=== PATIENT | female | born 1990 | race Caucasian/White ===

== ENCOUNTER → 2016-11-29 | Outpatient (CLI) | payer BC ==
[~2016-11-29] MED LIST: DOCO1CAP10; FERR325T5; PRENTAB26 PO
[2016-11-29 16:07] LABS: URINE APPEARANCE CLEAR (CLEAR); URINE BILIRUBIN NEG (NEG); URINE COLOR YELLOW; URINE NITRITE NEG (NEG); URINE SPECIFIC GRAVITY 1.015 (1.000-1.030); UROBILINOGEN NEG (NEG)
[2016-11-29 16:12] LABS: MANUAL MICROSCOPIC REQUIRED? NO; REVIEW REQ? NO
== END | disposition home or self-care (01) ==
LOC: C.LABSPEC 15:57
PROVIDERS: ATTEND Obstetrics & Gynecology
DX: Z34.00 Encounter for supervision of normal first pregnancy, unspecified trimester (principal)

== ENCOUNTER → 2016-12-02 | Outpatient (CLI) | payer BC ==
[2016-12-02 17:41] LABS: BASO % 0.1 %; BASO ABS # 0.01 K/uL (0-0.2); COMPLETE YES; EOS % 0.9 %; HEMATOCRIT 32.2 % (37-47); IG% 0.3 %; LYMPH % 18.6 %; LYMPH ABS # 1.82 K/uL (1.2-3.4); MEAN CELL VOLUME 89.9 fL (80-100); MEAN CORPUSCULAR HEMOGLOBIN 32.1 pg (25-34); MEAN CORPUSCULAR HGB CONC 35.7 g/dl (32-36); MEAN PLATELET VOLUME 9.6 fL (7.4-10.4); MONO % 5.9 %; NEUT % 74.2 %; PLATELET COUNT 270 K/uL (130-400); RED BLOOD COUNT 3.58 M/uL (4.2-5.4); WHITE BLOOD COUNT 9.81 K/uL (4.8-10.8)
[2016-12-06 12:35] LABS: CHLAMYDIA TRACH RNA*** NOT DETECTED (NOT DETECTED); GC (NEIS GONORRHOEAE)RNA** NOT DETECTED (NOT DETECTED)
== END | disposition home or self-care (01) ==
LOC: C.LAB1850 16:35
PROVIDERS: ATTEND Obstetrics & Gynecology
DX: Z34.00 Encounter for supervision of normal first pregnancy, unspecified trimester (principal)

== ENCOUNTER → 2016-12-21 | Outpatient (CLI) | payer BC ==
[2016-12-21 16:52] LABS: GTGD 50 Grams
== END | disposition home or self-care (01) ==
LOC: C.LAB1850 14:50
PROVIDERS: ATTEND Obstetrics & Gynecology
DX: Z34.02 Encounter for supervision of normal first pregnancy, second trimester (principal)

== ENCOUNTER → 2017-03-01 | Outpatient (CLI) | payer BC ==
[2017-03-01 16:43] LABS: HEMATOCRIT 30.4 % (37-47)
[2017-03-01 17:27] LABS: GTGD 50 Grams
== END | disposition home or self-care (01) ==
LOC: C.LAB1850 14:53
PROVIDERS: ATTEND Obstetrics & Gynecology
DX: Z34.03 Encounter for supervision of normal first pregnancy, third trimester (principal)

== ENCOUNTER → 2017-03-01 | Outpatient (CLI) | payer BC ==
[2017-03-01 18:45] LABS: URINE APPEARANCE CLEAR (CLEAR); URINE BILIRUBIN NEG (NEG); URINE COLOR YELLOW; URINE NITRITE NEG (NEG); URINE PH 6.5 (4.5-7.5); URINE SPECIFIC GRAVITY 1.015 (1.000-1.030); UROBILINOGEN NEG (NEG)
[2017-03-01 18:47] LABS: MANUAL MICROSCOPIC REQUIRED? YES; REVIEW REQ? NO
[2017-03-01 19:09] LABS: URINE BACTERIA NEG (NEG); URINE RBC 0-4 /hpf (0-4)
== END | disposition home or self-care (01) ==
LOC: C.LABSPEC 17:59
PROVIDERS: ATTEND Obstetrics & Gynecology
DX: Z34.03 Encounter for supervision of normal first pregnancy, third trimester (principal)

== ENCOUNTER → 2017-03-05 | Outpatient (CLI) | payer BC | END | disposition home or self-care (01) | LOC: C.LAB 09:32 | PROVIDERS: ATTEND Obstetrics & Gynecology | DX: O28.9 Unspecified abnormal findings on antenatal screening of mother (principal); Z3A.00 Weeks of gestation of pregnancy not specified ==

== ENCOUNTER → 2017-05-04 | Outpatient (CLI) | payer BC | END | disposition home or self-care (01) | LOC: C.LABSPEC 18:03 | PROVIDERS: ATTEND Obstetrics & Gynecology | DX: Z34.03 Encounter for supervision of normal first pregnancy, third trimester (principal) ==

== ENCOUNTER 2017-05-14 09:01 | Inpatient (IN) | payer BC ==
[~2017-05-14] VITALS: Ht 160 cm; Wt 71.8 kg
--- NOTE | 2017-05-14 09:16 | Anesthesia Procedure Note ---
Anesthesia Epidural Removal Nt Date & Time May 14, 2017 at 09:16 Notes Mental Status: alert / awake / arousable, participated in evaluation Nausea / Vomiting: adequately controlled Pain: adequately controlled Airway Patency, RR, SpO2: stable & adequate BP & HR: stable & adequate Hydration State: stable & adequate Neuraxial Anesthesia: was administered Anesthetic Complications: no major complications apparent, pt satisfied with anesthetic care Epidural: removed without complications, with tip intact
[2017-05-14] MEDS ORDERED: OXYTOCIN 30 UNITS/500ML NSS IV ONE (09:51)
[2017-05-14] MEDS ORDERED: LACTATED RINGER'S 1000ML 1,000 ML IV PRN (10:02)
[2017-05-14] MEDS ORDERED: BUPIVACAINE 0.25% 30 ML VIAL ONE (10:19)
[2017-05-14] MEDS ORDERED: EpHEDrine SULFATE INJ 50 MG/ML AMP ONE (10:19)
[2017-05-14] MEDS ORDERED: FENTANYL 2MCG/ML ROPIV 1.25MG/ML 100ML BAG EPI ONE (10:20)
[2017-05-14] MEDS: LACTATED RINGER'S 1000ML 1,000 ML IV SCH ×2 (10:30→11:05)
[2017-05-14 10:34] LABS: MEAN CELL VOLUME 90.4 fL (80-100); MEAN CORPUSCULAR HEMOGLOBIN 31.5 pg (25-34); MEAN CORPUSCULAR HGB CONC 34.8 g/dl (32-36); MEAN PLATELET VOLUME 9.3 fL (7.4-10.4); PLATELET COUNT 194 K/uL (130-400); RED BLOOD COUNT 3.65 M/uL (4.2-5.4); WHITE BLOOD COUNT 16.36 K/uL (4.8-10.8)
[2017-05-14 11:48] VITALS: Ht 160 cm; Wt 71.8 kg
[2017-05-14] MEDS ORDERED: PRENTAB26 PO (11:57)
[2017-05-14] MEDS ORDERED: FERR325T5 (11:59)
[2017-05-14] MEDS ORDERED: DOCO1CAP10 (11:59)
[2017-05-14] MEDS ORDERED: LACTATED RINGER'S 1000ML 500 ML IV PRN (12:27)
[2017-05-14] MEDS ORDERED: NALOXONE HCL INJ 1 MG in SODIUM CHLORIDE 0.9% 1000ML 1,000 ML IV PRN (12:27)
[2017-05-14] MEDS ORDERED: FENTANYL 2MCG/ML ROPIV 1.25MG/ML 100ML BAG EPI PRN (12:30)
[2017-05-14] MEDS ORDERED: EpHEDrine SULFATE INJ 50 MG/ML AMP IV PRN (12:30)
[2017-05-14] MEDS ORDERED: PROMETHAZINE HCL INJ 6.25 MG in SODIUM CHLORIDE 0.9% 50ML 50 ML IV PRN (12:30)
[2017-05-14] MEDS ORDERED: ONDANSETRON INJ 2 MG/ML 2 ML VIAL IV PRN (12:30)
[2017-05-14] MEDS ORDERED: NALOXONE HCL INJ 0.4 MG/1 ML VIAL/CARP IV PRN (12:30)
[2017-05-14] MEDS ORDERED: DiphenhydrAMINE HCL 50 MG/ML VIAL IV PRN (12:30)
[2017-05-14] MEDS ORDERED: NALBUPHINE HCL INJ 10 MG/ML AMP IV PRN (12:30)
[2017-05-14] MEDS ORDERED: OXYCODONE/ACETAMINOPHEN 5-325 TAB PO PRN (16:00)
[2017-05-14] MEDS ORDERED: LANOLIN OINT EXT PRN ×2 (16:00)
[2017-05-14] MEDS ORDERED: OXYTOCIN 30 UNITS/500ML NSS IV PRN (16:00)
[2017-05-14] MEDS ORDERED: BENZOCAINE 20% AER SPR 82.5 GM CAN EXT PRN (16:00)
[2017-05-14] MEDS ORDERED: HYDROCORTISONE ACETATE 25 MG SUPP PR PRN (16:00)
[2017-05-14] MEDS ORDERED: SUPERCREAM 0.870 % 15GM JAR EXT PRN (16:00)
--- NOTE | 2017-05-14 16:15 | DELIVERY SUMMARY ---
DATE OF OPERATION: 05/14/2017 DATE OF DELIVERY: 05/14/2017. PREDELIVERY DIAGNOSES: 1. 27-year-old G1, P0 at 38 weeks 2 days. 2. Spontaneous labor. POSTDELIVERY DIAGNOSES: Same plus third degree perineal laceration. PROCEDURE: Spontaneous vaginal delivery and repair of third degree laceration. DELIVERING PHYSICIAN: Dr. Sales. FINDINGS: Viable male , Apgars 8 and 9, weight pending. Please see nursery records and third degree perineal laceration. ESTIMATED BLOOD LOSS: 400 mL. DESCRIPTION OF DELIVERY: The patient progressed to complete with epidural anesthesia and she spontaneously vaginally delivered a viable male from the left occiput anterior position. The head delivered followed by the anterior shoulder followed by the posterior shoulder followed by the body. No nuchal cord was noted. The was placed on the mothers' abdomen. A spontaneous cry was heard. The cord was doubly clamped and cut using delayed cord clamping technique after 1 minute. Cord blood was obtained. Placenta delivered spontaneously intact with a 3-vessel cord. Pitocin was given. The bladder was drained with catheter and the uterus became firm. The uterus and vagina were swept of all clots and debris. The cervix, vagina and perineum were inspected and a third degree perineal laceration was noted with a partial tear of the anal sphincter muscle. This was repaired in standard fashion with [id number] stitches to reapproximate the muscle capsule of the anal sphincter muscle using 3-0 chromic suture. This was followed by standard repair of the now second degree perineal laceration with 3-0 Vicryl in a running stitch. At the conclusion of the delivery excellent hemostasis was observed. All sponge, instrument and needle counts were correct x2 at the conclusion of the case. Rectal exam prior to repair noted no laceration into the rectum and rectal exam following the repair noted no stitches entering the rectum. The patient and baby recovered in the room in stable and good condition. I attest to the content of the Intraoperative Record and any orders documented therein. Any exception s are noted below.
--- NOTE | 2017-05-14 16:29 | Anesthesia Procedure Note ---
Anesthesia Epidural Removal Nt Date & Time May 14, 2017 at 16:29 Vital Signs Pain Intensity: 0.0 Notes Mental Status: alert / awake / arousable, participated in evaluation Nausea / Vomiting: adequately controlled Pain: adequately controlled Airway Patency, RR, SpO2: stable & adequate BP & HR: stable & adequate Hydration State: stable & adequate Neuraxial Anesthesia: was administered Anesthetic Complications: no major complications apparent, pt satisfied with anesthetic care Epidural: removed without complications, with tip intact
[2017-05-14] MEDS: DOCUSATE SODIUM 100 MG CAP PO SCH (19:54)
[2017-05-14] MEDS: IBUPROFEN 600 MG TAB PO PRN (19:54)
[2017-05-14 20:00] VITALS: BP 107/68; PULSE 102; TEMP 36.8
[2017-05-14 23:45] VITALS: BP 110/70; PULSE 90; TEMP 36.7
[2017-05-15] MEDS: IBUPROFEN 600 MG TAB PO PRN ×4 (03:06→22:23)
[2017-05-15 04:00] VITALS: BP 108/69; PULSE 94; TEMP 36.8
[2017-05-15 07:10] VITALS: BP 97/62; PULSE 72; TEMP 36.8; O2SAT 98
[2017-05-15 07:43] LABS: HEMATOCRIT 30.5 % (37-47)
--- NOTE | 2017-05-15 07:45 | Progress Note ---
Subjective May 15, 2017. Subjective conversation w/ patient, physical exam Ambulation: ambulating normally Voiding: no voiding problems Passing Gas: Yes Diet Tolerance: Regular Diet Lochia: Moderate Feeding Type: Breast Feeding Pain: controlled Review of Systems Constitutional: No problem reported Respiratory: No problem reported Cardiac: No problem reported Breast: No problem reported Abdomen: No problem reported Female : No problem reported Objective Vital Signs Date Time Temp Pulse Resp B/P (MAP) Pulse Ox O2 Delivery O2 Flow Rate FiO2 05/15/17 07:10 36.8 72 20 97/62 (74) 98 Room Air 05/15/17 04:00 36.8 94 18 108/69 05/14/17 23:45 36.7 90 20 110/70 05/14/17 23:45 Room Air 05/14/17 20:00 Room Air 05/14/17 20:00 36.8 102 18 107/68 Physical Exam General Appearance: WELL-APPEARING, NO APPARENT DISTRESS Respiratory/Chest: no respiratory distress Cardiovascular: regular rate, rhythm Abdomen: non tender, soft Fundus: Firm Extremities: normal inspection Laboratory Results Last 24 Hours Test 05/14/17 10:27 05/15/17 06:30 White Blood Count 16.36 K/uL Red Blood Count 3.65 M/uL Hemoglobin 11.5 g/dL 10.2 g/dL Hematocrit 33.0 % 30.5 % Mean Corpuscular Volume 90.4 fL Mean Corpuscular Hemoglobin 31.5 pg Mean Corpuscular Hemoglobin Concent 34.8 g/dl RDW Standard Deviation 43.8 fL RDW Coefficient of Variation 13.4 % Platelet Count 194 K/uL Mean Platelet Volume 9.3 fL Assessment and Plan Day#: 1 Continue Routine Care: PPD#1 doing well Continue routine care
[2017-05-15] MEDS: DOCUSATE SODIUM 100 MG CAP PO SCH ×2 (08:28→19:53)
[2017-05-15 12:20] VITALS: BP 107/64; PULSE 72; TEMP 36.4; O2SAT 100
[2017-05-15 15:30] VITALS: BP 110/72; PULSE 91; TEMP 36.7
[2017-05-15] MEDS ORDERED: BISACODYL 5 MG TABEC PO SCH (20:00)
[2017-05-15 23:30] VITALS: BP 102/62; PULSE 87; TEMP 37
[2017-05-16] MEDS: IBUPROFEN 600 MG TAB PO PRN (07:11)
[2017-05-16] MEDS: DOCUSATE SODIUM 100 MG CAP PO SCH (07:42)
--- NOTE | 2017-05-16 08:11 | Progress Note ---
Subjective May 16, 2017. Subjective conversation w/ patient, physical exam Ambulation: ambulating normally Voiding: no voiding problems Passing Gas: Yes Diet Tolerance: Regular Diet Lochia: Moderate Feeding Type: Breast Feeding Pain: controlled Review of Systems Constitutional: No problem reported Respiratory: No problem reported Cardiac: No problem reported Breast: No problem reported Abdomen: No problem reported Female : No problem reported Objective Vital Signs Date Time Temp Pulse Resp B/P (MAP) Pulse Ox O2 Delivery O2 Flow Rate FiO2 05/15/17 23:30 Room Air 05/15/17 23:30 37.0 87 16 102/62 05/15/17 15:30 Room Air 05/15/17 15:30 36.7 91 20 110/72 (85) Room Air 05/15/17 12:20 36.4 72 20 107/64 (78) 100 Room Air 05/15/17 08:45 Room Air Physical Exam General Appearance: WELL-APPEARING, NO APPARENT DISTRESS Respiratory/Chest: no respiratory distress Cardiovascular: regular rate, rhythm Abdomen: non tender, soft Fundus: Firm Extremities: normal inspection Assessment and Plan Post- Day#: 2 Continue Routine Care: PPD#2. Doing well. Discharge home. Followup in office in 2 weeks. Instructions discussed.
--- NOTE | 2017-05-16 08:12 | Discharge Instructions ---
Discharge Instructions Date of Service May 16, 2017. Admission Reason for Admission: Check Rupture Discharge Discharge Diagnosis / Problem: vaginal delivery Discharge Goals Goal(s): Routine recovery after delivery Activity Recommendations Activity Limitations: per Instructions/Follow-up section . Instructions / Follow-Up Instructions / Follow-Up ACTIVITY RECOMMENDATIONS: * Gradual return to full activity over the next 2-3 weeks. * No lifting - nothing heavier than baby over the next 2-3 weeks. * Do not engage in vigorous exercise, sexual activity or sports until cleared by your physician. * Do not drive or operate any motorized equipment until cleared by your physician. * You may shower/bathe daily. MEDICATIONS: For discomfort or pain, you may use Acetaminophen (Tylenol), Ibuprofen (Advil), or Naproxen (Aleve) following the package directions. For constipation you may use Colace following the package directions. BREAST CARE: If you are not breast feeding: * Wear a supportive bra 24 hours a day for one to two weeks. * Avoid stimulating your breasts and nipples as much as possible during the first few weeks after delivery. * When taking a shower, have the warm water hit your back, not breasts. * When your breasts feel full, apply ice packs. Usually three to four times a day helps ease the discomfort. * Take a mild pain medication (Tylenol / Motrin) when you are uncomfortable. If breast feeding: * Use breast milk to lubricate nipples. Lansinoh cream may be used for sore nipples. You do not need to remove cream prior to breast feeding. If using a different brand of cream, check the label for directions regarding removal of cream prior to nursing. * Wear a supportive bra. * If having problems with breasts or breast feeding, call a solar consultant or your health care provider. EPISIOTOMY CARE: After delivery, if you have an episiotomy (stitches), the following steps will ease discomfort and aid healing. * For the first 24 hours after delivery, place ice packs next to your episiotomy to help reduce swelling. * After the first 24 hour-period, sitz baths, either portable or in the tub, are suggested. A shower with a shower arm sprayed over the episiotomy may be comforting. * Hannah care should be done after each voiding and bowel movement. Squirt warm water from a plastic bottle over the perineum (region of the body between the anus and urinary opening) and pat dry. * Use Dermoplast to ease discomfort. Shake container. Glen directly over the episiotomy. Place a Tucks on a clean sanitary pad next to your episiotomy. SPECIAL CARE INSTRUCTIONS: When you are discharged from the hospital, it is important for you to follow the instructions listed below: * During the first week at home, you should be able to care for yourself and your baby. In addition, the usual light household activities are encouraged. * Limit your activities to the way you feel. Do not try to clean the house or move furniture. Be sensible. * If you actively engage in sports and have done so up until the time of your delivery, you may resume these activities as soon as you feel able. This may take up to one month or even longer. Use good judgment. * Continue to take your vitamins for at least six weeks after the of your baby. * Your diet need not be limited unless you were on a special diet before your delivery. Breast-feeding mothers need around 2500 calories per day and at least 64-80 ounces of fluid per day (8 to 10 glasses). * You should eat foods from the four major food groups. Crash diets or fad diets are to be avoided. Eating lean meats, fresh fruits and vegetables, low-fat dairy products, high fiber foods and a regular exercise program, will help you get back to your pre- weight without putting your health at risk. * Constipation is sometimes a problem after delivery. Take a mild laxative as needed. If breast feeding, Milk of Magnesia is acceptable to use. You may use a suppository or Fleets enema if no episiotomy. * A daily shower or tub bath is suggested. Be sure to thoroughly and gently dry the perineum. * A bloody vaginal discharge will usually continue until around four weeks post . A small amount of bleeding may continue for as long as six weeks. Vaginal discharge changes from the bright red bleeding after delivery to pink then brownish and finally yellowish-pink before becoming white and disappearing. * Bleeding may increase with activity. Your first period may come in 4-8 weeks. If you are breast feeding, your period may be delayed even longer. * [employer] (sex) can begin whenever both you and your partner feel comfortable and do not have any form of genital infection. It is recommended that you wait at least six weeks for internal and external healing to occur. If you have questions, please talk to your health care practitioner. A condom should be used to prevent infection and . * Foreplay, gentle intercourse and lubrication is very important the first several times to prevent pain. A water-based lubricant such as K-Y jelly or Astroglide may be used. * If you have RH negative blood and your baby is RH positive, you will receive RHOGAM by injection prior to discharge. The nurse will give you a card to keep with you that has the date and place that you received RHOGAM after delivery. * During your care, you had a Rubella screen done to check for the presence of rubella antibodies in your blood. If your test was negative, you will receive a Rubella vaccine prior to discharge. This vaccine may cause a fever, soreness at the injection site and flu-like symptoms. If these symptoms persist, notify your health care practitioner. is not advised for one month after a Rubella vaccine. * Verbalizes understanding of car seat law as reviewed with patient nursing. * Car Seat hand-out given and reviewed with patient by nursing. * Shaken baby information reviewed with patient by nursing. Call you doctor if: * Heavy bleeding (saturating several pads an hour) or passing clots the size of your fist. * A fever >101 degrees F (38.3 degrees C) on two occasions four hours apart and /or chills. * Unusual pain in the pelvic or vaginal areas. * "Baby Blues" lasting longer than two weeks. If you have any questions or concerns, call your health care practitioner at . FOLLOW UP VISIT: * Please call the office at to schedule a 6 week examination. It is important you keep this appointment. It is important for you to make arrangements for either yearly or twice yearly check-ups thereafter. Current Hospital Diet Patient's current hospital diet: Regular OB Diet Discharge Diet Recommended Diet: Regular OB Diet Pending Studies Studies pending at discharge: no Medical Emergencies . Who to Call and When: Medical Emergencies: If at any time you feel your situation is an emergency, please call 911 immediately. . Non-Emergent Contact Non-Emergency issues call your: Primary Care Provider, Front Office Representative . . "Provider Documentation" section prepared by Emily Sales. . VTE Core Measure Inpt VTE Proph given/why not?: Treatment not indicated
[2017-05-16 08:45] VITALS: BP 108/69; PULSE 87; TEMP 36.8; O2SAT 98
[2017-05-16 15:13] VITALS: BP_DIAS 69; PULSE 87; TEMP 36.8
== END 2017-05-16 15:35 | disposition home or self-care (01) | DRG 775 ==
LOC: C.OPB 09:01 → C.LD 09:01 → C.OPB 10:05 → C.LD 10:05 → C.OBG 18:20
PROVIDERS: ADMIT Obstetrics & Gynecology; ATTEND Obstetrics & Gynecology
PROC: 0DQR0ZZ Repair Anal Sphincter, Open Approach (ICD-10-PCS; principal; 2017-05-14)
PROC: 10E0XZZ Delivery of Products of Conception, External Approach (ICD-10-PCS; principal; 2017-05-14)
DX: O70.20 Third degree perineal laceration during delivery, unspecified (principal); Z3A.38 38 weeks gestation of pregnancy; Z37.0 Single live birth

== ENCOUNTER → 2017-06-27 | Outpatient (CLI) | payer BC ==
[~2017-06-27] MED LIST changes: -DOCO1CAP10
== END | disposition home or self-care (01) ==
LOC: C.PAPS 17:36
PROVIDERS: ATTEND Obstetrics & Gynecology
DX: Z01.419 Encounter for gynecological examination (general) (routine) without abnormal findings (principal)

== ENCOUNTER 2019-11-18 02:19 | Inpatient (IN) ==
[2019-11-18] MEDS ORDERED: OXYTOCIN 30 UNITS/500 ML BAG IV PRN ×2 (02:39→05:58)
[2019-11-18] MEDS ORDERED: LACTATED RINGER'S 1,000 ML IV PRN (02:39)
[2019-11-18] MEDS ORDERED: ePHEDrine sulfate 50 MG/ML AMP ONE (03:01)
[2019-11-18] MEDS ORDERED: fentaNYL citrate 100 MCG/2 ML VIAL ONE (03:01)
[2019-11-18] MEDS ORDERED: BUPIVACAINE 0.25% 30 ML VIAL ONE (03:01)
[2019-11-18] MEDS ORDERED: fentaNYL 2MCG/ML ROPIV 1.25MG/ML 100 ML BAG EPI ONE (03:02)
[2019-11-18 03:13] LABS: Hematocrit (blood only) 32.7 % (37-47); Hemoglobin 10.9 g/dL (12.0-16.0); Mean Corpuscular Hemoglobin 30.8 pg (25-34); Mean Corpuscular Volume 92.4 fL (80-100); Mean Platelet Volume 9.1 fL (7.4-10.4); Platelet Count 224 K/uL (130-400); RDW Standard Deviation 44.1 fL (36.4-46.3); Red Blood Count 3.54 M/uL (4.2-5.4); White Blood Count 10.18 K/uL (4.8-10.8)
[2019-11-18 03:22] LABS: Mean Corpuscular Hgb Conc 33.3 g/dL (32-36)
--- NOTE | 2019-11-18 04:17 | Anesthesiology Consultation ---
Date of Service November 18, 2019 Assessment & Plan (1) Encounter for pre-operative examination: Chart Review Chart Review: Acceptable Risk for Surgery and Patient NOT seen in Pre Admission Testing Consults Requested none ASA ASA2 Proposed Anesthesia Anesthesia Type: Labor Epidural Risk / Benefits Reviewed With: PT / POA / Parent / Guardian, Accepts Plan and Informed Consent Obtained History Height/Weight Height: 5 ft 3 in Weight: 74.843 kg Allergies Allergy/AdvReac Type Severity Reaction Status Date / Time No Known Allergies Allergy Verified 11/08/19 13:50 Medications Home Medications Medication Instructions Recorded Confirmed Last Taken docosahexanoic acid 1 tab PO DAILY 07/05/19 11/18/19 1 Day Ago ~11/17/19 ferrous gluconate 240 mg (27 mg 325 mg PO DAILY tab 07/05/19 11/18/19 1 Day Ago iron) tablet ~11/17/19 prenat.vits,ralph,sme-nodm-wfjjm 1 tab PO DAILY 07/05/19 11/18/19 1 Day Ago ~11/17/19 Active Medications Generic Name Dose Route Start Last Admin Trade Name Freq PRN Reason Stop Dose Admin Lactated Ringer's 1,000 mls @ 125 mls/hr 11/18/19 02:39 11/18/19 03:23 Lr IV 11/20/19 02:38 125 mls/hr .Q8H PRN Infusion L&D Protocol Protocol NPO Date Last Intake of Fluids: 11/18/19 Time Last Intake of Fluids: 03:00 Date Last Intake of Solids: 11/17/19 Time Last Intake of Solids: 18:30 Past Medical History Medical History History of varicella (normal spontaneous vaginal delivery) 2017 Placenta previa, marginal Exercise / Class Metabolic Activity II 4-5 Yardwork/Stairs/Walk up hill Past Family History Family History Other Breast cancer Multiple gestation Past Surgical History Surgical History History of tonsillectomy History of wisdom tooth extraction Past Anesthesia History No Hx of Anesthesia Complications and No Family Hx of Anesthesia Complications History of PONV No Hx of PONV and No Hx of Motion Sickness Social History Smoking Status: Never smoker Hx Alcohol Use: No Hx Substance Use: No Physical Exam Vital Signs Last Vital Signs Temp 36.7 C 11/18/19 02:34 Pulse 96 H 11/18/19 04:14 Resp 20 11/18/19 04:05 BP 106/69 11/18/19 04:14 Pulse Ox 98 11/18/19 04:12 ENMT Mouth: no dentition abnormality Thyromental Distance: > or= 3.5 Finger Breadths Mallampati Class: II Neck normal visual inspection Respiratory normal respiratory effort Auscultation: lungs clear to auscultation bilaterally Cardiovascular Rate/Rhythm: regular rate and regular rhythm Psychiatric Orientation: alert Testing Laboratory Results 11/18/19 03:01
[2019-11-18] MEDS ORDERED: NALBUPHINE HCL INJ 10 MG/ML AMP IV PRN (04:19)
[2019-11-18] MEDS ORDERED: ONDANSETRON INJ 2 MG/ML 2 ML VIAL IV PRN (04:19)
[2019-11-18] MEDS ORDERED: ePHEDrine sulfate 50 MG/ML AMP IV PRN (04:19)
[2019-11-18] MEDS ORDERED: DiphenhydrAMINE HCL 50 MG/ML VIAL IV PRN (04:19)
[2019-11-18] MEDS ORDERED: NALOXONE HCL 0.4 MG/1 ML VIAL/CARP IV PRN (04:19)
[2019-11-18] MEDS ORDERED: fentaNYL 2MCG/ML ROPIV 1.25MG/ML 100 ML BAG EPI PRN (04:19)
[2019-11-18] MEDS ORDERED: NALOXONE HCL 1 MG in SODIUM CHLORIDE 0.9% 1000ML 1,000 ML IV PRN (04:19)
--- NOTE | 2019-11-18 04:19 | Communication Note ---
Date of Service: November 18, 2019 There was a questionable small CSF leak through the tuhoy needle during epidural placement. It was unclear whether this was CSF or just a pocket of local anesthetic. I did recommend that she leave the catheter in for 24 hours as a PDPH preventative measure if she is willing to do so. Will monitor for PDPH and offer epidural blood patch if necessary.
[2019-11-18] MEDS ORDERED: BENZOCAINE 20% AER SPR 82.5 GM CAN EXT PRN (05:58)
[2019-11-18] MEDS ORDERED: SUPERCREAM 0.870% 15 GM JAR EXT PRN (05:58)
[2019-11-18] MEDS ORDERED: HYDROCORTISONE ACETATE 25 MG SUPP PR PRN (05:58)
[2019-11-18] MEDS ORDERED: DIPHTHERIA/TETANUS/PERTUSSIS 0.5 ML SYR/VIAL IM ONE (05:58)
[2019-11-18] MEDS ORDERED: bisacodyL 10 MG SUPP PR PRN (05:58)
[2019-11-18] MEDS: FERROUS SULFATE 325 MG TAB PO SCH (07:59)
[2019-11-18] MEDS: DOCUSATE SODIUM 100 MG CAP PO SCH ×2 (07:59→20:41)
[2019-11-18] MEDS: PRENATAL VITAMIN 1 TAB PO SCH (07:59)
[2019-11-18] MEDS: IBUPROFEN 600 MG TAB PO PRN ×3 (08:26→19:02)
--- NOTE | 2019-11-18 09:26 | Delivery Summary ---
DATE OF OPERATION: 11/18/2019 PROCEDURE: Normal spontaneous vaginal delivery, second-degree laceration repair. SURGEON: Dr. Manjit Lazaro. PREOPERATIVE DIAGNOSES: 1. Single intrauterine at 38 weeks 5 days gestational age. 2. Labor. POSTOPERATIVE DIAGNOSES: 1. Single intrauterine at 38 weeks 5 days gestational age. 2. Labor. 3. Status post delivery. ESTIMATED BLOOD LOSS: 250 mL. DRAINS: None. FLUIDS: Continuous lactated ringer. URINE OUTPUT: 300 mL via straight cath at the completion of the case. COMPLICATIONS: None. FINDINGS: Viable male with weight 7 pounds 15.8 ounces and Apgars of 6 and 9 at 1 and 5 minutes respectively. DESCRIPTION OF PROCEDURE: The patient progressed to 10 cm dilated, 100% effaced, positive 2 station, pushed over 4 contractions to achieve delivery of the , came out in XAVIER position, restituted to left transverse. There was noted to be tight nuchal cord which was not able to reduce. It was delivered through. Body and shoulders quickly followed. was noted to have good tone, but not crying at delivery. Baby was stimulated for approximately 45 seconds, at which time the cord was double clamped and cut as the was still not crying at that time. Immediately after cutting the cord, the did start crying, which was approximately at 1 minute of life and was vigorous thereafter. Cord blood was then obtained. Attention was then turned to deliver the placenta, which was delivered intact with 3-vessel cord with gentle cord traction. On inspection of perineum, vagina and cervix, there was noted to be second degree perineal laceration which was repaired with 3-0 Vicryl continuous running traditional stitch. Needle, sponge and instrument counts were correct at the completion of the case. Both mother and stable in the immediate post delivery period. I attest to the content of the Intraoperative Record and any orders documented therein. Any exception s are noted below.
[2019-11-18] MEDS: ACETAMINOPHEN 325 MG TAB PO PRN ×3 (11:12→22:42)
[2019-11-19] MEDS: IBUPROFEN 600 MG TAB PO PRN ×4 (03:36→17:00)
[2019-11-19 06:33] LABS: Hematocrit (blood only) 30.1 % (37-47); Hemoglobin 10.2 g/dL (12.0-16.0); Mean Corpuscular Hemoglobin 31.3 pg (25-34); Mean Corpuscular Hgb Conc 33.9 g/dL (32-36); Mean Corpuscular Volume 92.3 fL (80-100); Mean Platelet Volume 9.4 fL (7.4-10.4); Platelet Count 205 K/uL (130-400); RDW Coefficient of Variation 13.4 % (11.5-14.5); RDW Standard Deviation 44.8 fL (36.4-46.3); Red Blood Count 3.26 M/uL (4.2-5.4); White Blood Count 13.77 K/uL (4.8-10.8)
--- NOTE | 2019-11-19 06:35 | Obstetrical Progress Note ---
Date of Service November 19, 2019 Assessment & Plan (1) Encounter for care and examination after delivery: PPD1 s/p . - doing well, progressing toward discharge - no complaints today - continue supportive care and encourage ambulation Supervising Physician Co-Signing Physician Notes Patient doing well this morning. Meeting all post delivery goals. Bleeding normal. Continue routine care Subjective No complaints this morning. Feeling well. Review of Systems Constitutional: no fever, no chills, no body aches and no fatigue Respiratory: no cough and no dyspnea Cardiovascular: no chest pain, no dyspnea and no edema Gastrointestinal: no abdominal pain, no nausea, no vomiting, no constipation and no diarrhea/loose stools Genitourinary: no dysuria Physical Exam Constitutional: well developed and well nourished Respiratory: normal respiratory effort; no respiratory distress, no labored breathing and no cough Auscultation: no crackles, no rales, no rhonchi and no wheezes Cardiovascular: Rate/Rhythm: regular rate and regular rhythm Heart Sounds: no gallop, no murmur and no cardiac rub Extremities: no pedal edema Gastrointestinal (Abdomen): Inspection/Auscultation: normal bowel sounds; abdomen not distended Percussion/Palpation: abdomen soft; no guarding Musculoskeletal: no tenderness to palpation of calves bilaterally Genitourinary: Uterus small and firm, palpable in midline 3 fingers below level of umbilicus,no tenderness to palpation. Results & Data Vital Signs (Past 12 Hours) Vital Signs Temp Pulse Pulse Resp BP BP Pulse Ox 11/19/19 04:30 36.7 C 74 20 124/72 11/18/19 23:55 36.9 C 90 20 119/76 11/18/19 19:40 36.6 C 94 H 18 120/77 98 11/19/19 Range/Units 06:14 WBC Pending RBC Pending Hgb Pending Hct Pending MCV Pending MCH Pending MCHC Pending Plt Count Pending PG Care Time/CCT Total # of Minutes Spent Total Time Spent with Patient: Total time spent is greater than 50% in coordination of care (as documented) at patient's floor/unit and/or counseling patient: Resident Activity Tracking Resident Involvement: Resident Care Provided Care Provided: OB Delivery
--- NOTE | 2019-11-19 06:50 | Anesthesia Procedure Note ---
Date of Service November 19, 2019 Anesthesia Post Epidural Note Vital Signs Vital Signs: Temp Pulse Resp BP Pulse Ox 36.7 C 74 20 124/72 98 11/19/19 04:30 11/19/19 04:30 11/19/19 04:30 11/19/19 04:30 11/18/19 19:40 Pain Intensity Bilateral Abdomen: Pain Intensity: 1 Head: Pain Intensity: 3 Notes Mental Status: alert / awake / arousable Nausea / Vomiting: adequately controlled Pain: adequately controlled Airway Patency, RR, SpO2: stable & adequate BP & HR: stable & adequate Hydration State: stable & adequate Neuraxial Anesthesia: was administered and sensory block is resolving Anesthetic Complications: no major complications apparent and Pt Satisfied with anesthetic care Epidural: Removed without complications and With tip intact Notes: equivocal loss of csf with catheter placement. no c/o headache at this point.
[2019-11-19] MEDS: PRENATAL VITAMIN 1 TAB PO SCH (08:13)
[2019-11-19] MEDS: FERROUS SULFATE 325 MG TAB PO SCH (08:13)
[2019-11-19] MEDS: DOCUSATE SODIUM 100 MG CAP PO SCH ×2 (08:13→20:16)
--- NOTE | 2019-11-19 15:12 | Procedure Note ---
Procedure Note Date of Service November 19, 2019 Epidural Blood Patch: Patient had an equivocal loss of fluid during epidural placement. She did complain of some moderate positional headache that was somewhat concerning or PDPH. Given the strong possibility of a dural puncture, I offered EBP vs conservative management and return to the hospital if worsening headache. The patient elected for blood patch and informed consent was obtained. The patient was placed in R Lateral decubitus, the skin was prepped with betadine and localized with 1% lidocaine. A 17G tuhoy was advanced to the epidural space at L3/4 to VERONICA technique. At this time the L arm was prepped an 20cc of blood was drawn in a sterile fashion thru a 21G butterfly needle. This blood was injected in to the epidural space without complication or discomfort. The patient tolerated the procedure well. Her headache symptoms were completely relieved. She will lay flat for 1 hour, after which point she can resume light activity today and normal activity tomorrow. Coding
[2019-11-19] MEDS ORDERED: bisacodyL 5 MG TABEC PO SCH (20:00)
[2019-11-20] MEDS: IBUPROFEN 600 MG TAB PO PRN ×2 (00:30→07:51)
[2019-11-20] MEDS: ACETAMINOPHEN 325 MG TAB PO PRN (02:06)
[2019-11-20 06:29] LABS: Hematocrit (blood only) 30.4 % (37-47); Hemoglobin 10.2 g/dL (12.0-16.0)
--- NOTE | 2019-11-20 06:35 | Obstetrical Progress Note ---
Date of Service November 20, 2019 Assessment & Plan (1) Encounter for care and examination after delivery: PPD1 s/p . - substantial improvement in headache after epidural blood patch by anesthesia - no complaints today - continue supportive care and encourage ambulation - progressing toward discharge; discharge instructions discussed Supervising Physician Co-Signing Physician Notes Resident Physician Supervision Note: I interviewed and examined the patient. Discussed with Dr. Squires and agree with findings and plan as documented in the note. Any exceptions or clarifications are listed here: Doing well. MANNING improved. Plan d/c today. Instructions given. Documented By: Sheeba Calvin MD, FACOG Subjective Feeling much better this AM after epidural blood patch yesterday. No longer has headaches. No complaints otherwise. Review of Systems Constitutional: + fatigue; no fever and no chills Respiratory: no cough and no dyspnea Cardiovascular: no chest pain, no syncope, no edema and no calf pain Gastrointestinal: no abdominal pain, no nausea, no vomiting, no cramping, no constipation and no diarrhea/loose stools Genitourinary: no dysuria and no difficulty urinating Neurologic: no headache(s) Physical Exam Constitutional: well developed and well nourished Respiratory: normal respiratory effort; no respiratory distress, no labored breathing and no cough Auscultation: no crackles, no rales, no rhonchi and no wheezes Cardiovascular: Rate/Rhythm: regular rate and regular rhythm Heart Sounds: no gallop, no murmur and no cardiac rub Extremities: no pedal edema Gastrointestinal (Abdomen): Inspection/Auscultation: normal bowel sounds; abdomen not distended Percussion/Palpation: abdomen soft; no guarding Genitourinary: OB Exam Abdomen: + fundal height Fundus: + firm and + relation to umbilicus (at level of umbilicus); not tender Results & Data Vital Signs (Past 12 Hours) Vital Signs Temp Pulse Resp BP Pulse Ox 11/19/19 23:45 36.9 C 89 18 103/62 99 11/20/19 Range/Units 06:11 Hgb 10.2 L (12.0-16.0) g/dL Hct 30.4 L (37-47) % Resident Activity Tracking Resident Involvement: Resident Care Provided Care Provided: Adult Hospital Medicine and OB Delivery
[2019-11-20 07:49] VITALS: BP 112/73; PULSE 76; TEMP 97.7; O2SAT 98
[2019-11-20] MEDS: DOCUSATE SODIUM 100 MG CAP PO SCH (07:51)
[2019-11-20] MEDS: FERROUS SULFATE 325 MG TAB PO SCH (07:51)
[2019-11-20] MEDS: PRENATAL VITAMIN 1 TAB PO SCH (07:51)
== END 2019-11-20 13:40 | disposition home or self-care (01) | DRG 807 ==
LOC: OPB 02:19 → 4S1 02:22 → 4S2 09:30